=== PATIENT | female | born 1945 | race Caucasian/White ===

== ENCOUNTER → 2017-07-27 | Outpatient (CLI) | payer OTHER, MEDICARE | LOC: FIMAGING 16:13 | PROVIDERS: ATTEND Family Medicine | DX: Z12.31 Encounter for screening mammogram for malignant neoplasm of breast (principal) | CPT/HCPCS: G0202 ==

== ENCOUNTER → 2018-03-23 | Outpatient (CLI) | payer OTHER, MEDICARE | LOC: FIMAGING 12:43 | PROVIDERS: ATTEND Family Medicine | DX: M25.562 Pain in left knee (principal); G89.29 Other chronic pain ==

== ENCOUNTER → 2018-07-11 | Outpatient (CLI) | payer MEDICARE, OTHER | LOC: FIMAGING 15:13 | PROVIDERS: ATTEND Family Medicine | DX: Z12.31 Encounter for screening mammogram for malignant neoplasm of breast (principal) ==